=== PATIENT | male | born 1995 | race Caucasian/White ===

== ENCOUNTER 2018-08-25 17:57 | Emergency (ER) | payer OTHER ==
[~2018-08-25] VITALS: Ht 175.3 cm; Wt 72.0 kg
[2018-08-25] MEDS ORDERED: MOTRIN800 MG PO (19:41)
[2018-08-25] MEDS ORDERED: LORTAB 5/3255 MG PO (19:41)
[2018-08-25 20:00] VITALS: BP 120/64
== END 2018-08-25 20:08 | disposition home or self-care (01) | DRG 563 ==
LOC: ED 17:57
PROC: 2W3QX1Z Immobilization of Right Lower Leg using Splint (ICD-10-PCS; principal; 2018-08-25)
DX: S82.831A Other fracture of upper and lower end of right fibula, initial encounter for closed fracture (principal); Y93.83 Activity, rough housing and horseplay; Y93.9 Activity, unspecified; Y92.73 Farm field as the place of occurrence of the external cause